=== PATIENT | female | born 1955 | race Caucasian/White ===

== ENCOUNTER 2016-06-12 08:03 | Outpatient (CLI) | payer OTHER ==
--- NOTE | 2016-06-12 14:56 | DIAGNOSTIC IMAGING REPORT ---
PROCEDURE: MG B/L IMPLANTS - SCREENING INDICATION: SCREENING TECHNIQUE: CC and MLO digital views of each breast with CC and MLO digital implant-displacement views. COMPARISON: Compared to mammogram from [facility] in [facility] on 04/22/2012. FINDINGS: Computer-aided detection applied. Bilateral submammary implants appear intact. The visualized portions of the surrounding breast parenchyma are moderately dense with a few dystrophic calcifications. Findings suggest a development of a group of microcalcifications in the upper outer right breast (1030 position, posterior third) IMPRESSION: 1. Findings suggest a small group of microcalcifications in the upper outer right breast. Further mammographic views (true lateral view, CC and MLO magnification implant displacement views) are recommended. In addition, right breast ultrasound is recommended. RESULT CODE: 0- Incomplete; needs additional evaluation. A. A negative report should not delay biopsy if a dominant or clinically suspicious mass is present. 10-15% of cancers are not identified by x-ray. B. A negative report may reinforce clinical impression. C. Adenosis and dense breasts may obscure an underlying neoplasm. D. False positive reports average 6-10%. E.. A yearly screening mammogram is recommended. A reminder letter will be scheduled.
[2016-08-28] MEDS ORDERED: LEVO-T125 MCG PO (12:47)
== END 2016-06-12 23:00 ==
LOC: MAM SRH 08:03
DX: Z12.31 Encounter for screening mammogram for malignant neoplasm of breast (principal)

== ENCOUNTER 2016-06-19 14:42 | Outpatient (CLI) | payer OTHER ==
--- NOTE | 2016-06-22 11:17 | DIAGNOSTIC IMAGING REPORT ---
PROCEDURE: MG UNILATERAL DIAG-RT W/CAD INDICATION: Follow-up right breast microcalcifications. TECHNIQUE: True lateral implant displacement digital view of the right breast. In addition, magnification CC and MLO views were obtained of the upper outer right breast (region of clinical concern). Finally, high-resolution right breast ultrasound was performed (18 mHz). COMPARISON: Comparison is made to screening mammogram study of 11/30. FINDINGS: MAMMOGRAM: Computer-aided detection applied. Confirmation of a a small group of clustered microcalcifications in the upper outer right breast associated with a 1.2 cm asymmetric parenchymal density. In addition, there are a few other vascular and microcalcifications in this region. BREAST ULTRASOUND: Normal parenchyma. No evidence of mass or cyst. IMPRESSION: 1. Confirmation of grouped indeterminate microcalcifications in the upper outer right breast. While this could represent benign sclerosing adenosis, underlying malignant calcifications are also a possibility. Tissue biopsy (stereotactic versus needle localization/excisional) is recommended. 2. Findings discussed with the patient. 3. Findings discussed with Dr. Jackman. RESULT CODE: 4- Suspicious abnormality - biopsy should be considered. A. A negative report should not delay biopsy if a dominant or clinically suspicious mass is present. 10-15% of cancers are not identified by x-ray. B. A negative report may reinforce clinical impression. C. Adenosis and dense breasts may obscure an underlying neoplasm. D. False positive reports average 6-10%. E.. A yearly screening mammogram is recommended. A reminder letter will be scheduled.
[2016-08-28] MEDS ORDERED: LEVO-T125 MCG PO (12:47)
== END 2016-06-19 23:00 ==
LOC: MAM SRH 14:42
DX: R92.0 Mammographic microcalcification found on diagnostic imaging of breast (principal)

== ENCOUNTER 2016-08-31 09:42 | Day surgery (SDC) | payer OTHER ==
[~2016-08-31] VITALS: Ht 167.6 cm; Wt 76.4 kg
[~2016-08-31 09:42] MED LIST: LEVO-T125 MCG PO
[2016-08-31] MEDS ORDERED: HYCET1 ML PO (15:10)
--- NOTE | 2016-08-31 15:12 | Provider's Discharge Care Plan ---
Problem, Goal, Plan Problem List 1. S/P NEEDLE LOCALIZED RIGHT BREAST BIOPSY Goals: Diagnostic testing, Therapeutic intervention Instructions: Follow up as directed, Take meds as directed
--- NOTE | 2016-08-31 15:12 | Provider's Discharge Care Plan ---
Problem, Goal, Plan Problem List 1. S/P NEEDLE LOCALIZED RIGHT BREAST BIOPSY Goals: Diagnostic testing, Therapeutic intervention Instructions: Follow up as directed, Take meds as directed
[2016-08-31 16:11] VITALS: BP 101/64
[2016-08-31 16:25] VITALS: BP 107/69
[2016-08-31 16:45] VITALS: BP 99/64
[2016-08-31 16:58] VITALS: BP 105/70
--- NOTE | 2016-08-31 17:41 | DIAGNOSTIC IMAGING REPORT ---
PROCEDURE: MG SURGICAL BREAST SPEC-RT INDICATION: WIRE LOC FOR MICROCALCIFICATIONS TECHNIQUE: Two surgical breast specimens were obtained with grid localization technique. COMPARISON: Comparison is made to mammographic needle localization study earlier in the day (08/31/2016). FINDINGS: Specimen 1: No calcifications were seen in the initial specimen. This was conveyed to Dr. Mansfield in the operating suite (a second specimen to be sent). Specimen 2: Confirmation of excision of regional microcalcifications in the second specimen located between coordinates G-6, G-8, J-5, J-8. This was conveyed to Dr. Mansfield in the operating suite. IMPRESSION: 1. Successful excision of left breast microcalcifications (second specimen).
--- NOTE | 2016-08-31 19:16 | OPERATIVE REPORT ---
DATE OF SURGERY: 08/31/2016 SURGEON: Daryn Mansfield III, MD QUARRY SUPERVISOR: None. PREOPERATIVE DIAGNOSES: 1. Microcalcifications, right breast 2. Sclerosing adenosis on physical examination, no dominant masses appreciable POSTOPERATIVE DIAGNOSIS: 1. Microcalcifications, right breast PROCEDURE PERFORMED: 1. Right breast needle localized breast biopsy ANESTHESIA: General endotracheal, local 1% Xylocaine with epinephrine, 0.5% Marcaine with epinephrine. COMPLICATIONS: There were no intraoperative or anesthetic complications. ESTIMATED BLOOD LOSS: Minimal. FLUIDS: 400 mL Lactated Ringer's. PATHOLOGY SPECIMEN: Sent to laboratory, right breast tissue. INDICATIONS: A 61-year-old female, routine mammogram was noted to have microcalcifications right breast/right upper quadrant, approximately 10:30 position. SURGICAL FINDINGS: Microcalcifications within the specimen, according to radiology. The breast consistency was that of soft butter; however, there were calcifications in the specimen that was presented to radiology. SURGICAL TECHNIQUE: The patient brought to the operating room, placed in the dorsal supine position where she was administered general endotracheal anesthesia by the anesthesiology department. After proper anesthesia had taken effect, patient's right upper extremity was abducted from her side. Her right breast and chest were prepped using Betadine and draped in a sterile fashion. The patient had 2 needle localizations performed in Radiology; the more significant was the needle localization of the needle located in the superomedial portion of her breast. There was another needle localization inferior to that, but Radiology was not particularly impressed with those calcifications. It was decided to perform the biopsy on the most significant microcalcifications of those located in the superior needle localization. To take both biopsies would have resulted in the equivalent of a lumpectomy/almost quadrantectomy on this patient. The patient brought to the operating room, placed in dorsal supine position where she was administered general endotracheal anesthesia. After proper anesthesia had taken effect, the right upper extremity was abducted from her side. The right breast was prepped using Betadine, draped in a sterile fashion. The site was infiltrated using local anesthetic. The superior needle localized tissue was elliptically excised, carried down into the breast tissue and almost onto the pectoralis. This tissue was removed and sent to pathology. The first specimen contained no microcalcification, the second specimen did. Hemostasis was achieved using pressure. Palpation of the wound revealed no dominant masses or suspicious firmness of the breast tissue. The skin was then approximated using 4-0 subdermal Polysorb, steri-Strips, a sterile pressure occlusive dressing was placed over the site. The patient was placed in an Mikal wrap around her chest and breast. The patient tolerated procedure well, was extubated, transferred to the recovery room in stable condition.
--- NOTE | 2016-09-01 17:15 | DIAGNOSTIC IMAGING REPORT ---
PROCEDURE: MG PREOP BREAST WIRE LOC-RT INDICATION: Right breast indeterminate microcalcifications. Breast implants. TECHNIQUE: Informed consent was obtained and the patient was advised of the usual risks and complications including infection, bleeding and allergy. COMPARISON: Comparison is made to right mammogram on 06/19/2016. FINDINGS: Preliminary images were difficult to evaluate for the exact location of the microcalcifications, although two areas were thought to be the proper location. It was elected to place two needles and hook wires in these regions, in order to ensure satisfactory localization. Mammographic grid technique was used utilized. The two possible locations were noted at H 11 and C 6 in the upper outer right breast . Following sterile preparation and 1% lidocaine local anesthetic, mammographic-grid technique was utilized to place two long 16-gauge catheters and hook wires in the upper outer right breast. Follow-up imaging demonstrate that the posterior medial hook wire corresponded to the microcalcifications, while the anterior lateral localization wire was not associated with calcifications. Follow-up images demonstrate the tip of the catheter and wire are 1.5 cm deep to the calcifications. Both catheters and wires were secured in place (Steri-Strips, Tegaderm) and the patient was transferred back to ambulatory surgery in satisfactory condition. IMPRESSION: 1. Successful preoperative needle localization of right breast microcalcifications with the posterior medial hook wire and catheter corresponding to the area suspicious calcifications. 2. Findings discussed with Dr. Mansfield.
== END 2016-08-31 18:30 | disposition home or self-care (01) ==
LOC: OB SRH 09:42 → ACUTE2 SRH 09:42 → SDC SRH 09:42 → OB SRH 09:43 → SDC SRH 10:30 → ACUTE2 SRH 16:06 → SDC SRH 18:30
PROVIDERS: Specialist
PROC: 0HBT0ZX Excision of Right Breast, Open Approach, Diagnostic (ICD-10-PCS; principal; 2016-08-31 12:00)
DX: D05.11 Intraductal carcinoma in situ of right breast (principal)